=== PATIENT | female | born 1980 | race Caucasian/White ===

== ENCOUNTER 2019-09-15 01:57 | Emergency (ER) | payer MEDICAID ==
[~2019-09-15] VITALS: Ht 165.1 cm; Wt 122.7 kg
[2019-09-15 02:28] VITALS: BP 140/76
--- NOTE | 2019-09-15 03:13 | PHYS DOC ---
Past Medical History Past Medical History: Hypothyroid Past Surgical History: No Surgical History Smoking Status: Never Smoker Alcohol Use: None General Adult EDM: Chief Complaint: LOWER EXT PAIN HPI: HPI: Patient is a 38 year old female presenting with leg swelling and numbness. Is been going on for the last 2 to 3 hours the numbness has she is been worried about leg swelling on and off for about a month now she is a [employer] truck driver she has prolonged immobility symptoms are mild to moderate they are getting worse tonight the numbness came on it was the anterior barnard and around to the calf and she was very worried about a blood clot so she came in for evaluation past medical history just has hypothyroidism and has had pinched nerve in the back. She said she had an EMG in February that showed normal peripheral nerves Review of Systems: Review of Systems: Constitutional: Denies fever or chills. [] Eyes: Denies change in visual acuity. [] HENT: Denies nasal congestion or sore throat. [] Respiratory: Denies cough or shortness of breath. [] Cardiovascular: Denies chest pain or edema. [] GI: Denies abdominal pain, nausea, vomiting, bloody stools or diarrhea. [] : Denies dysuria. [] Musculoskeletal: Integument: Denies rash. [] Neurologic: Denies headache, Endocrine: Denies polyuria or polydipsia. [] Lymphatic: Heart Score: Risk Factors: Risk Factors: DM, Current or recent (<one month) smoker, HTN, HLP, family history of CAD, obesity. Risk Scores: Score 0 - 3: 2.5% MACE over next 6 weeks - Discharge Home Score 4 - 6: 20.3% MACE over next 6 weeks - Admit for Clinical Observation Score 7 - 10: 72.7% MACE over next 6 weeks - Early Invasive Strategies Physical Exam: PE: Constitutional: Well developed, well nourished, no acute distress, non-toxic appearance. [] HENT: Normocephalic, atraumatic, bilateral external ears normal, oropharynx moist, no oral exudates, nose normal. [] Eyes: PERRLA conjunctiva normal, no discharge. [] Neck: Normal range of motion, no tenderness, supple, no stridor. [] Pulmonary: Normal respiratory effort no increased work of breathing no obvious chest wall trauma Abdomen: Soft, no tenderness, no masses, no pulsatile masses. [] Skin: Warm, dry, no erythema, no rash. [] Extremities: 1-2+ edema bilaterally slightly more on the right pedal pulses are present Neurologic: Alert and oriented X 3, normal motor function, normal sensory function, no focal deficits noted. [] Psychologic: Affect normal, judgement normal, mood normal. [] Current Patient Data: Vital Signs: Vital Signs Date Time Temp Pulse Resp B/P (MAP) Pulse Ox O2 Delivery O2 Flow Rate FiO2 09/15/19 02:28 97.5 84 16 140/76 (97) 98 Room Air 97.5 EKG: EKG: [] Radiology/Procedures: Radiology/Procedures: [] Impression: Ultrasound was negative for DVT according to the nuclear cardiology technologist final read is currently pending Course & Med Decision Making: Course & Med Decision Making Pertinent Labs and Imaging studies reviewed. (See chart for details) [] 38-year-old female with unilateral leg numbness and some asymmetric swelling plan to rule out DVT overall low pretest probability it could be a peripheral pinched nerve. Patient was reassured and discharged in stable condition Dragon Disclaimer: Dragon Disclaimer: This electronic medical record was generated, in whole or in part, using a voice recognition dictation system. Departure Departure Impression: Primary Impression: Leg numbness Disposition: 01 HOME, SELF-CARE Condition: STABLE Justicifation of Admission Dx: Justifications for Admission: Justification of Admission Dx: N/A MARTINE HERNANDEZ MD Sep 15, 2019 03:13
--- NOTE | 2019-09-15 04:37 | RAD ---
EXAM: Right lower extremity venous Doppler. HISTORY: Right lower extremity pain/swelling. COMPARISON: None. FINDINGS: Grayscale and Doppler analysis of the right lower extremity deep venous systems was performed with graded compression and augmentation. The common femoral, greater saphenous, superficial femoral, popliteal and calf veins were assessed. There is no evidence of deep venous thrombosis. Mild edema in the superficial soft tissues are noted. IMPRESSION: 1. No evidence of deep venous thrombosis. Electronically signed by: Matt Gagnon MD (09/15/2019 4:34 AM) [facility] [place]
== END 2019-09-15 05:30 | disposition home or self-care (01) ==
LOC: ER 01:57
DX: R20.0 Anesthesia of skin (principal); R60.0 Localized edema; E03.9 Hypothyroidism, unspecified
CPT/HCPCS: 93971; 99284